=== PATIENT | male | born 1970 | race Caucasian/White ===

== ENCOUNTER 2022-03-03 21:11 | Emergency (ER) | payer OTHER ==
[~2022-03-03] VITALS: Ht 180.3 cm; Wt 122.5 kg
[~2022-03-03 21:11] MED LIST: LISI5 PO
[2022-03-03] MEDS ORDERED: CEPH500 PO (23:00)
== END 2022-03-03 23:16 | disposition home or self-care (01) ==
LOC: ER 21:11
DX: S66.126A Laceration of flexor muscle, fascia and tendon of right little finger at wrist and hand level, initial encounter (principal); W26.0XXA Contact with knife, initial encounter; Z79.899 Other long term (current) drug therapy
CPT/HCPCS: 12001; 99282-25